=== PATIENT | male | born 1980 | race Caucasian/White ===

== ENCOUNTER 2019-05-15 16:00 | Outpatient (CLI) | payer OTHER, SELFPAY ==
--- NOTE | ~2019-05-15 | XR_ITS ---
EXAMINATION: XR chest 2V EXAM DATE: 05/15/2019 16:23 INDICATION: Cough. Shortness of breath for 3 weeks. Acute upper respiratory tract infection. TECHNIQUE: Frontal and lateral projections of the chest obtained and reviewed. Correlation is made to rib series 2017.. FINDINGS: There is patchy multifocal left lower lobe pneumonia, smaller amount of right basilar airsp wendy disease. No pneumothorax or pleural effusion. Cardiomediastinal silhouette is normal. There are n o osseous abnormalities identified. IMPRESSION: Patchy left basilar predominant airspace disease likely pneumonia. I discussed pneumonia with Mary Anne Gibbons NP at 05/15/2019 16:28 TIME CLOCK REPAIRER . Reviewed, dictated and finalized at location A. CLOCK REPAIRER
[2019-05-15 16:58] LABS: Basophils Percent Auto 0.3 % (0.2-1.2); Eosinophils Absolute Auto 0.1 K/mm3 (0-0.3); Eosinophils Percent Auto 0.7 % (0-4.4); Hematocrit 33.7 % (42.0-52.0); Hemoglobin 11.4 g/dL (14.0-18.0); Immature Granulocyte Absolute 0.06 K/mm3 (0.00-0.031); Immature Granulocyte Percent A 0.5 % (0-0.5); Lymphocytes Absolute Auto 1.44 K/mm3 (0.9-3.2); Lymphocytes Percent Auto 11.9 % (18.3-44.2); Mean Corpuscular HGB Conc 33.8 g/dl (32-36); Mean Corpuscular Hemoglobin 26.6 pg (26-34); Mean Corpuscular Volume 78.7 fl (80-100); Mean Platelet Volume 9.5 fl (7.4-10.4); Monocytes Absolute Auto 0.7 K/mm3 (0.1-0.6); Monocytes Percent Auto 6.1 % (2.6-8.5); Neutrophils Absolute Auto 9.8 K/mm3 (1.3-6.7); Neutrophils Percent Auto 80.5 % (45.5-73.1); Platelet Count Result 351 k/mm3 (150-375); Red Blood Count 4.28 M/mm3 (4.6-6.20); Red Cell Distribution Width 12.5 % (11.5-14.5); White Blood Count 12.1 K/mm3 (4.5-10.0)
[2019-05-15 17:13] LABS: Blood Urea Nitrogen 15 mg/dL (9-20); Calcium 9.3 mg/dL (8.4-10.2); Carbon Dioxide 26 mmol/L (22-30); Chloride 106 mmol/L (98-107); Estimated Glomerular Filt Rate > 60; Glucose 94 mg/dL (75-110); Potassium 3.9 mmol/L (3.4-5.0); Sodium 140 mmol/L (137-145)
[2019-05-18 13:26] LABS: CMV IgM Antibody <30.00 AU/mL (<30.00)
[2019-05-19 13:06] LABS: CMV IgG Antibody <0.60 U/mL (<0.60)
[2019-05-21 17:33] LABS: EBV Nuclear Ab Interpretation Past; EBV Virus Capsid Ag IgM Ab <36.00 U/mL (<36.00)
== END 2019-05-15 16:01 | disposition home or self-care (01) ==
LOC: ANHIMG 16:07
PROVIDERS: PCP Family Medicine; Visit Provider Nurse Practitioner Family
DX: J06.9 Acute upper respiratory infection, unspecified (principal); R05 Cough; R53.83 Other fatigue; R63.4 Abnormal weight loss
CPT/HCPCS: 36415; 71046; 80048; 84443; 85025; 86644; 86645; 86664; 86665